=== PATIENT | male | born 1990 | race Caucasian/White ===

== ENCOUNTER 2016-07-09 23:17 | Emergency (ER) | payer OTHER ==
[~2016-07-09] VITALS: Ht 167.6 cm; Wt 56.0 kg
[~2016-07-09 23:17] MED LIST: NOHOMEMEDS; PROCTOFOAM-HC10 GM PR; VICODIN 5-3001 EACH PO
[2016-07-10] MEDS ORDERED: NORCO 5/3251 TABLET PO (02:03)
[2016-07-10 02:35] VITALS: BP 133/79
== END 2016-07-10 02:38 | disposition home or self-care (01) ==
LOC: EME → EDBD 23:17 → EME 23:17
DX: S02.2XXA Fracture of nasal bones, initial encounter for closed fracture (principal); S06.0X9A Concussion with loss of consciousness of unspecified duration, initial encounter; S40.012A Contusion of left shoulder, initial encounter; S00.93XA Contusion of unspecified part of head, initial encounter; V49.10XA Passenger injured in collision with unspecified motor vehicles in nontraffic accident, initial encounter; F17.200 Nicotine dependence, unspecified, uncomplicated
CPT/HCPCS: 70450; 70486; 73030; 99281; 99283